=== PATIENT | male | born 1950 | race Asian ===

== ENCOUNTER 2020-03-14 18:34 | Inpatient (IN) | payer SELFPAY ==
[2020-03-14] MEDS ORDERED: cefTRIAXone 1 GM in NS 55 ML IVPB ONE (19:15)
[2020-03-14] MEDS ORDERED: Azithromycin 500 MG in D5W 275 ML IVPB ONE (19:15)
[2020-03-14] MEDS ORDERED: LORazepam Inj 2mg/ml 1ml IV ONE (20:00)
[2020-03-14] MEDS ORDERED: Enoxaparin 120 mg inj SUBQ SCH (21:00)
[2020-03-15] MEDS: propofoL 1,000mg/100ml 100 ML IV SCH ×2 (01:30→05:30)
[2020-03-15] MEDS ORDERED: NS w/KCl 20mEq 1000ml 1,000 ML IV SCH (02:00)
[2020-03-15] MEDS ORDERED: Vancomycin 1.5gm/NS Premix IVPB ONE (03:00)
[2020-03-15] MEDS ORDERED: Sodium Bicarbonate 50ml Carp ONE (03:28)
[2020-03-15] MEDS: Sodium Bicarbonate 100 ML in 1/2 NS 1000ml 1,000 ML IV SCH ×2 (03:32→15:22)
[2020-03-15] MEDS: LORazepam Inj 2mg/ml 1ml IV PRN ×7 (03:37→18:52)
[2020-03-15] MEDS: Enoxaparin 80mg Inj SUBQ SCH (08:51)
[2020-03-15] MEDS ORDERED: cefTRIAXone 1 GM in D5W 55 ML IVPB SCH (19:00)
[2020-03-15] MEDS ORDERED: Azithromycin 500 MG in D5W 275 ML IV SCH (20:00)
[2020-03-15] MEDS: fentaNYL 2500mcg/NS 250ml 250 ML IV SCH (20:02)
[2020-03-16] MEDS: LORazepam Inj 2mg/ml 1ml IV PRN ×2 (00:55→08:02)
[2020-03-16] MEDS: Sodium Bicarbonate 100 ML in 1/2 NS 1000ml 1,000 ML IV SCH ×3 (01:29→22:52)
[2020-03-16] MEDS: Enoxaparin 80mg Inj SUBQ SCH (08:04)
[2020-03-16] MEDS: Cefepime HCl 1 GM in D5W 55 ML IVPB SCH (20:26)
[2020-03-16] MEDS: fentaNYL 2500mcg/NS 250ml 250 ML IV SCH (20:45)
[2020-03-16] MEDS: D5 1/2NS 1,000 ML IV SCH (23:45)
[2020-03-17] MEDS: LORazepam Inj 2mg/ml 1ml IV PRN ×7 (01:31→20:34)
[2020-03-17] MEDS ORDERED: Haloperidol 5mg/ml Inj IM PRN (06:57)
[2020-03-17] MEDS ORDERED: Vancomycin 1.5gm/NS Premix q24h IVPB SCH (09:00)
[2020-03-17] MEDS: D5 1/2NS 1,000 ML IV SCH ×2 (09:54→22:26)
[2020-03-17] MEDS: Cefepime HCl 1 GM in D5W 55 ML IVPB SCH ×2 (09:55→20:22)
[2020-03-17] MEDS: Enoxaparin 80mg Inj SUBQ SCH (09:57)
[2020-03-17] MEDS: fentaNYL 2500mcg/NS 250ml 250 ML IV SCH (19:46)
[2020-03-17] MEDS: Haloperidol 5mg/ml Inj IM PRN (21:49)
[2020-03-18] MEDS: LORazepam Inj 2mg/ml 1ml IV PRN ×4 (00:42→06:40)
[2020-03-18] MEDS: dilTIAZem HCl 60mg tab NG SCH ×2 (02:12→10:06)
[2020-03-18] MEDS: Haloperidol 5mg/ml Inj IM PRN (03:47)
[2020-03-18] MEDS ORDERED: Vancomycin 1gm/D5W 275ml IVPB ONE ×2 (08:00)
[2020-03-18] MEDS: Cefepime HCl 1 GM in D5W 55 ML IVPB SCH ×2 (08:07→20:26)
[2020-03-18] MEDS: Enoxaparin 80mg Inj SUBQ SCH (08:10)
[2020-03-18] MEDS ORDERED: NS 275ml ONE (14:01)
[2020-03-18] MEDS ORDERED: D5 1/2NS 1000ml IV ONE (14:01)
[2020-03-18] MEDS: D5 1/2NS 1,000 ML IV SCH (16:07)
[2020-03-18] MEDS: dilTIAZem HCl 60mg tab ORAL SCH ×2 (18:23→23:42)
[2020-03-18] MEDS: fentaNYL 2500mcg/NS 250ml 250 ML IV SCH (19:46)
[2020-03-18] MEDS: Acetaminophen 650mg/20.3ml NG PRN (20:25)
[2020-03-19] MEDS: Acetaminophen 650mg/20.3ml NG PRN ×2 (03:03→17:55)
[2020-03-19] MEDS: dilTIAZem HCl 60mg tab ORAL SCH ×2 (05:03→11:35)
[2020-03-19] MEDS: D5 1/2NS 1,000 ML IV SCH (05:03)
[2020-03-19] MEDS ORDERED: Sterile Water Irrig 1000ml IRRIG ONE (08:29)
[2020-03-19] MEDS: Enoxaparin 80mg Inj SUBQ SCH (08:39)
[2020-03-19] MEDS: Cefepime HCl 1 GM in D5W 55 ML IVPB SCH ×2 (08:39→20:31)
[2020-03-19] MEDS ORDERED: Vancomycin 1gm in D5W 275ml IVPB ONE (09:00)
[2020-03-19] MEDS ORDERED: D5 1/2NS 1,000 ML IV SCH (17:45)
[2020-03-19] MEDS ORDERED: dilTIAZem HCl 90mg tab ORAL SCH (18:00)
[2020-03-19] MEDS: dilTIAZem HCl 90mg tab NG SCH ×2 (18:17→23:30)
[2020-03-19] MEDS: fentaNYL 2500mcg/NS 250ml 250 ML IV SCH (19:46)
[2020-03-20] MEDS: dilTIAZem HCl 90mg tab NG SCH ×4 (05:42→23:20)
[2020-03-20] MEDS ORDERED: Vancomycin 1.25gm/NS Premix IVPB ONE (08:00)
[2020-03-20] MEDS: Cefepime HCl 1 GM in D5W 55 ML IVPB SCH (09:00)
[2020-03-20] MEDS ORDERED: NS 275ml ONE (09:51)
[2020-03-20] MEDS ORDERED: D5 1/2NS 1000ml IV ONE (09:51)
[2020-03-20] MEDS ORDERED: Tubing IV Secondary IV ONE (09:51)
[2020-03-20] MEDS: LORazepam Inj 2mg/ml 1ml IV PRN (11:32)
[2020-03-20] MEDS: Piperacillin/Tazobactam 3.375 GM in NS 110 ML IVPB SCH ×2 (12:40→21:13)
[2020-03-20] MEDS: fentaNYL 2500mcg/NS 250ml 250 ML IV SCH (18:31)
[2020-03-21] MEDS: Piperacillin/Tazobactam 3.375 GM in NS 110 ML IVPB SCH ×3 (05:22→21:15)
[2020-03-21] MEDS: dilTIAZem HCl 90mg tab NG SCH ×3 (05:22→18:00)
[2020-03-21] MEDS: Enoxaparin 80mg Inj SUBQ SCH (09:00)
[2020-03-21] MEDS ORDERED: Sterile Water Irrig 1000ml IRRIG ONE (15:08)
[2020-03-21] MEDS ORDERED: Tubing IV Secondary IV ONE (15:08)
[2020-03-21] MEDS ORDERED: 1/2 NS 1000ml IV ONE (15:08)
[2020-03-21] MEDS ORDERED: D5 1/2NS 1000ml IV ONE (15:08)
[2020-03-21] MEDS ORDERED: NS 275ml ONE (15:08)
[2020-03-21] MEDS: fentaNYL 2500mcg/NS 250ml 250 ML IV SCH (19:08)
[2020-03-22] MEDS: dilTIAZem HCl 90mg tab NG SCH ×4 (00:03→17:28)
[2020-03-22] MEDS: Piperacillin/Tazobactam 3.375 GM in NS 110 ML IVPB SCH ×3 (05:09→21:44)
[2020-03-22] MEDS: fentaNYL 2500mcg/NS 250ml 250 ML IV SCH (19:46)
[2020-03-23] MEDS: dilTIAZem HCl 90mg tab NG SCH ×5 (00:50→23:35)
[2020-03-23] MEDS: Piperacillin/Tazobactam 3.375 GM in NS 110 ML IVPB SCH ×3 (05:47→21:47)
[2020-03-23] MEDS: Acetaminophen 650mg/20.3ml NG PRN ×2 (12:35→20:32)
[2020-03-23] MEDS ORDERED: Milk of Magnesia 30ml Ud NG PRN (19:00)
[2020-03-23] MEDS: fentaNYL 2500mcg/NS 250ml 250 ML IV SCH (19:46)
[2020-03-23] MEDS: Docusate 100mg/10ml Liq NG SCH (20:31)
[2020-03-24] MEDS: Piperacillin/Tazobactam 3.375 GM in NS 110 ML IVPB SCH ×3 (05:04→21:33)
[2020-03-24] MEDS: dilTIAZem HCl 90mg tab NG SCH ×3 (05:05→17:29)
[2020-03-24] MEDS: Acetaminophen 650mg/20.3ml NG PRN ×2 (05:11→21:33)
[2020-03-24] MEDS: Docusate 100mg/10ml Liq NG SCH ×2 (08:28→20:14)
[2020-03-24] MEDS: fentaNYL 2500mcg/NS 250ml 250 ML IV SCH (19:46)
[2020-03-25] MEDS: dilTIAZem HCl 90mg tab NG SCH ×5 (00:39→23:19)
[2020-03-25] MEDS: Piperacillin/Tazobactam 3.375 GM in NS 110 ML IVPB SCH ×3 (05:53→21:00)
[2020-03-25] MEDS: Pantoprazole Inj IVP SCH (08:12)
[2020-03-25] MEDS: Docusate 100mg/10ml Liq NG SCH ×2 (08:12→20:20)
[2020-03-25] MEDS ORDERED: Sodium Polystyrene Sulfonate 15gm Powder NG SCH (16:30)
[2020-03-25] MEDS ORDERED: NS 500ML ONE (17:53)
[2020-03-25] MEDS ORDERED: NS 275ml ONE ×2 (17:53→17:54)
[2020-03-25] MEDS ORDERED: Tubing IV Secondary IV ONE (17:54)
[2020-03-25] MEDS: fentaNYL 2500mcg/NS 250ml 250 ML IV SCH (19:34)
[2020-03-25] MEDS: Acetaminophen 650mg/20.3ml NG PRN (19:41)
[2020-03-26] MEDS: dilTIAZem HCl 90mg tab NG SCH ×4 (05:36→23:43)
[2020-03-26] MEDS: Piperacillin/Tazobactam 3.375 GM in NS 110 ML IVPB SCH ×3 (05:36→21:21)
[2020-03-26] MEDS: Pantoprazole Inj IVP SCH (09:36)
[2020-03-26] MEDS: Docusate 100mg/10ml Liq NG SCH ×2 (09:36→21:00)
[2020-03-26] MEDS ORDERED: 1/2 NS 1000ml IV ONE (14:56)
[2020-03-26] MEDS: Acetaminophen 650mg/20.3ml NG PRN (18:23)
[2020-03-26] MEDS: fentaNYL 2500mcg/NS 250ml 250 ML IV SCH (18:24)
[2020-03-27] MEDS: dilTIAZem HCl 90mg tab NG SCH ×3 (05:07→17:09)
[2020-03-27] MEDS: Piperacillin/Tazobactam 3.375 GM in NS 110 ML IVPB SCH (05:08)
[2020-03-27] MEDS: Docusate 100mg/10ml Liq NG SCH ×2 (08:05→20:47)
[2020-03-27] MEDS: Pantoprazole Inj IVP SCH (08:05)
[2020-03-27] MEDS: fentaNYL 2500mcg/NS 250ml 250 ML IV SCH (19:46)
[2020-03-28] MEDS: dilTIAZem HCl 90mg tab NG SCH ×5 (00:10→23:49)
[2020-03-28] MEDS: Acetaminophen 650mg/20.3ml NG PRN (00:28)
[2020-03-28] MEDS: Docusate 100mg/10ml Liq NG SCH ×2 (09:00→20:42)
[2020-03-28] MEDS: Pantoprazole Inj IVP SCH (09:43)
[2020-03-28] MEDS: Piperacillin/Tazobactam 3.375 GM in NS 110 ML IVPB SCH ×2 (14:56→21:37)
[2020-03-28] MEDS: Lactulose 20gm/30ml UDC NG SCH (18:45)
[2020-03-28] MEDS: fentaNYL 2500mcg/NS 250ml 250 ML IV SCH (19:46)
[2020-03-29] MEDS: Piperacillin/Tazobactam 3.375 GM in NS 110 ML IVPB SCH (05:10)
[2020-03-29] MEDS: dilTIAZem HCl 90mg tab NG SCH ×3 (06:25→18:00)
[2020-03-29] MEDS: Docusate 100mg/10ml Liq NG SCH ×2 (09:00→21:03)
[2020-03-29] MEDS: Pantoprazole Inj IVP SCH (09:49)
[2020-03-29] MEDS: Lactulose 20gm/30ml UDC NG SCH ×2 (09:49→12:23)
[2020-03-29] MEDS: Enoxaparin 80mg Inj SUBQ SCH ×2 (09:51→21:05)
[2020-03-29] MEDS ORDERED: Levofloxacin 500mg tab ORAL SCH (11:30)
[2020-03-29] MEDS: Albuterol/Ipratropium 3ml neb HHN SCH ×4 (15:30→22:57)
[2020-03-29] MEDS: D5W w/KCl 20mEq 1,000 ML IV SCH (18:07)
[2020-03-29] MEDS: fentaNYL 2500mcg/NS 250ml 250 ML IV SCH (19:46)
[2020-03-29] MEDS: Acetaminophen 650mg/20.3ml NG PRN (21:03)
[2020-03-30] MEDS: dilTIAZem HCl 90mg tab NG SCH ×4 (00:12→17:14)
[2020-03-30] MEDS: Albuterol/Ipratropium 3ml neb HHN SCH ×6 (03:00→23:00)
[2020-03-30] MEDS: D5W w/KCl 20mEq 1,000 ML IV SCH ×3 (04:19→22:38)
[2020-03-30] MEDS: Pantoprazole Inj IVP SCH (08:08)
[2020-03-30] MEDS: Docusate 100mg/10ml Liq NG SCH ×2 (08:09→21:00)
[2020-03-30] MEDS: Enoxaparin 80mg Inj SUBQ SCH ×2 (08:10→21:00)
[2020-03-30] MEDS: fentaNYL 2500mcg/NS 250ml 250 ML IV SCH (19:46)
[2020-03-31] MEDS ORDERED: PCA Morphine 1mg/ml 30 ML IV PRN ×3 (01:00→03:00)
[2020-03-31] MEDS ORDERED: Albuterol/Ipratropium 3ml neb HHN PRN (01:00)
[2020-03-31] MEDS ORDERED: Tubing IV Secondary IV ONE ×2 (04:32)
[2020-03-31] MEDS ORDERED: Sterile Water Irrig 1000ml IRRIG ONE ×2 (04:32)
[2020-03-31] MEDS ORDERED: NS 275ml ONE (04:32)
== END 2020-03-31 04:33 | disposition expired | DRG 207 ==
DX: J15.1 Pneumonia due to Pseudomonas (principal); J96.01 Acute respiratory failure with hypoxia; I21.4 Non-ST elevation (NSTEMI) myocardial infarction; A41.9 Sepsis, unspecified organism; I50.33 Acute on chronic diastolic (congestive) heart failure; E43 Unspecified severe protein-calorie malnutrition; G93.41 Metabolic encephalopathy; E87.2 Acidosis; N17.9 Acute kidney failure, unspecified; I13.0 Hypertensive heart and chronic kidney disease with heart failure and stage 1 through stage 4 chronic kidney disease, or unspecified chronic kidney disease; K92.2 Gastrointestinal hemorrhage, unspecified; J44.9 Chronic obstructive pulmonary disease, unspecified; Z86.73 Personal history of transient ischemic attack (TIA), and cerebral infarction without residual deficits; I48.0 Paroxysmal atrial fibrillation; N18.9 Chronic kidney disease, unspecified; E86.0 Dehydration; Z87.891 Personal history of nicotine dependence; D69.6 Thrombocytopenia, unspecified; Z66 Do not resuscitate; Z51.5 Encounter for palliative care; I73.9 Peripheral vascular disease, unspecified; I48.91 Unspecified atrial fibrillation